=== PATIENT | female | born 1985 | race Caucasian/White ===

== ENCOUNTER 2017-02-21 17:29 | Outpatient (CLI) | payer OTHER ==
[~2017-02-21] VITALS: Ht 175.3 cm; Wt 93.6 kg
[2017-02-21 17:40] VITALS: BP 120/65; PULSE 52; TEMP 97.4
[2017-02-21 17:47] VITALS: BP 120/65; PULSE 52; TEMP 97.4
[2017-02-21] MEDS ORDERED: PRENATAL-U1 CAP PO (17:53)
[2017-02-21 18:15] VITALS: BP 109/59; PULSE 46
[2017-02-21 18:33] LABS: COLLECTION METHOD CLEAN CATCH
[2017-02-21 18:36] LABS: MEAN CELL VOLUME 90 fl (80.0-100.0); MEAN CORPUSCULAR HGB CONC 35 g/dl (33.0-37.0); MEAN PLATELET VOLUME 11.6 fl (7.4-10.4); PLATELET COUNT 137 K/mm3 (130-400); RED BLOOD COUNT 3.45 M/mm3 (4.10-5.30); WHITE BLOOD COUNT 9.8 K/mm3 (4.8-10.8)
[2017-02-21 18:45] LABS: HEMATOCRIT 30.9 % (37.0-47.0); HEMOGLOBIN 10.9 g/dl (12.5-16.0); MEAN CORPUSCULAR HEMOGLOBIN 32 pg (27.0-31.0)
[2017-02-21 18:45] LABS: PH 7 (5-8); SQUAMOUS EPITHELIAL 0-2 /hpf; URINE APPEARANCE Clear; URINE BACTERIA Moderate /hpf; URINE BILIRUBIN Negative (NEGATIVE); URINE BLOOD Negative (NEGATIVE); URINE COLOR Straw; URINE GLUCOSE Negative (NEGATIVE); URINE KETONE Negative (NEGATIVE); URINE LEUKOCYTE ESTERASE Trace (NEGATIVE); URINE PROTEIN(semi-quant) Negative (NEGATIVE); URINE RBC 0-2 /hpf; URINE UROBILINOGEN Negative (NEGATIVE); URINE WBC 0-2 /hpf
[2017-02-21 19:15] VITALS: BP 113/67; PULSE 48
[2017-02-21 19:23] LABS: ALBUMIN 3.3 gm/dL (3.5-5.0); BILIRUBIN,TOTAL 0.3 mg/dL (0.0-1.0); CALCIUM 9.4 mg/dL (8.4-10.2); CREATININE, serum 0.99 mg/dL (0.52-1.25); POTASSIUM 3.7 mmol/L (3.4-5.0); TOTAL PROTEIN 6.4 gm/dL (6.4-8.2)
== END 2017-02-21 19:40 | disposition home or self-care (01) ==
LOC: LDRO 17:29 → COL.LAB 17:29 → LDR 17:45 → LDRO 19:40
PROVIDERS: Obstetrics & Gynecology
DX: O16.3 Unspecified maternal hypertension, third trimester (principal); Z3A.37 37 weeks gestation of pregnancy
CPT/HCPCS: OP

== ENCOUNTER 2017-03-02 11:05 | Inpatient (IN) | payer OTHER ==
[2017-03-02] VITALS (46 sets, daily range): BP systolic 115–181; BP diastolic 65–98; PULSE 49–78; TEMP 98.3–98.9
[~2017-03-02] VITALS: Ht 175.3 cm; Wt 93.6 kg
[~2017-03-02 11:05] MED LIST: PRENATAL-U1 CAP PO
[2017-03-02] MEDS ORDERED: COLACE 100100 MG/CAP PO (11:35)
[2017-03-02 14:45] LABS: BASO % 0.4 % (0.0-2.0); EOS # 0.1 (0.0-0.7); EOS % 0.8 % (0-4.0); GRAN # 7.9 (1.4-6.5); GRAN % 73.1 % (42.2-75.2); HEMATOCRIT 33.4 % (37.0-47.0); HEMOGLOBIN 11.9 g/dl (12.5-16.0); LYMPH # 2.1 (1.2-3.4); LYMPH % 19.1 % (20.0-51.0); MEAN CELL VOLUME 89 fl (80.0-100.0); MEAN CORPUSCULAR HEMOGLOBIN 32 pg (27.0-31.0); MEAN CORPUSCULAR HGB CONC 36 g/dl (33.0-37.0); MEAN PLATELET VOLUME 11.9 fl (7.4-10.4); MONO # 0.7 (0.1-0.6); MONO % 6.1 % (1.7-9.3); PLATELET COUNT 146 K/mm3 (130-400); RED BLOOD COUNT 3.76 M/mm3 (4.10-5.30); WHITE BLOOD COUNT 10.8 K/mm3 (4.8-10.8)
[2017-03-02 14:54] LABS: ALBUMIN 3.9 gm/dL (3.5-5.0); BILIRUBIN,TOTAL 0.7 mg/dL (0.0-1.0); CALCIUM 10.9 mg/dL (8.4-10.2); CREATININE, serum 1.19 mg/dL (0.52-1.25); TOTAL PROTEIN 7.3 gm/dL (6.4-8.2)
[2017-03-03] VITALS (56 sets, daily range): BP systolic 112–146; BP diastolic 62–95; PULSE 48–69; TEMP 97.7–99.3
[2017-03-04] VITALS: BP 120/68; PULSE 52; TEMP 98.5
[2017-03-04 07:35] LABS: BASO % 0.3 % (0.0-2.0); EOS # 0.2 (0.0-0.7); EOS % 1.4 % (0-4.0); GRAN # 8.7 (1.4-6.5); GRAN % 73.2 % (42.2-75.2); LYMPH # 2.1 (1.2-3.4); LYMPH % 17.5 % (20.0-51.0); MEAN CELL VOLUME 92 fl (80.0-100.0); MEAN CORPUSCULAR HGB CONC 35 g/dl (33.0-37.0); MEAN PLATELET VOLUME 11.3 fl (7.4-10.4); MONO # 0.8 (0.1-0.6); MONO % 7.1 % (1.7-9.3); PLATELET COUNT 128 K/mm3 (130-400); RED BLOOD COUNT 2.25 M/mm3 (4.10-5.30); WHITE BLOOD COUNT 11.9 K/mm3 (4.8-10.8)
[2017-03-04 07:46] LABS: HEMATOCRIT 20.6 % (37.0-47.0); HEMOGLOBIN 7.2 g/dl (12.5-16.0); MEAN CORPUSCULAR HEMOGLOBIN 32 pg (27.0-31.0)
[2017-03-04 08:00] VITALS: BP 115/64; PULSE 69; TEMP 98.4
[2017-03-04 11:30] VITALS: BP 112/57; PULSE 68; TEMP 98.7
[2017-03-04] MEDS ORDERED: PERCOCET 325 MG1 TA2 PO (12:19)
[2017-03-04] MEDS ORDERED: MOTRIN 600600 MG/TAB PO (12:19)
[2017-03-04 17:30] VITALS: BP 130/75; PULSE 71; TEMP 98
[2017-03-04 20:30] VITALS: BP 110/54; PULSE 63; TEMP 98.6
[2017-03-05 08:20] VITALS: BP 120/72; PULSE 52; TEMP 97.7
[2017-03-05 17:05] VITALS: BP 129/59; PULSE 59; TEMP 98
[2017-03-05 21:53] VITALS: BP 143/80; PULSE 65; TEMP 98.1
[2017-03-06 08:00] VITALS: BP 130/71; PULSE 62; TEMP 97.5
== END 2017-03-06 12:15 | disposition home or self-care (01) | DRG 765 ==
LOC: LDRO 11:05 → LDR 12:00 → LDRO 13:16 → OB 13:19 → LDR 13:19 → OB 03-03 11:00
PROVIDERS: Obstetrics & Gynecology
PROC: 10D00Z1 Extraction of Products of Conception, Low, Open Approach (ICD-10-PCS; principal; 2017-03-03)
DX: O24.02 Pre-existing type 1 diabetes mellitus, in childbirth (principal); D62 Acute posthemorrhagic anemia; O99.02 Anemia complicating childbirth; E10.9 Type 1 diabetes mellitus without complications; Z96.41 Presence of insulin pump (external) (internal); O76 Abnormality in fetal heart rate and rhythm complicating labor and delivery; Z79.4 Long term (current) use of insulin; O99.824 Streptococcus B carrier state complicating childbirth; O13.4 Gestational [pregnancy-induced] hypertension without significant proteinuria, complicating childbirth; Z3A.38 38 weeks gestation of pregnancy; Z37.0 Single live birth
CPT/HCPCS: J0690; J1885; J2270; J2370; J2400; J2405; J2540; J2590; J7030

== ENCOUNTER → 2017-05-31 | Outpatient (CLI) | payer OTHER ==
[~2017-05-31] MED LIST changes: +COLACE 100100 MG/CAP PO; +MOTRIN 600600 MG/TAB PO; +PERCOCET 325 MG1 TA2 PO
== END ==
LOC: LAC 10:23
DX: Z39.1 Encounter for care and examination of lactating mother (principal)

== ENCOUNTER → 2018-11-17 | Outpatient (CLI) | payer OTHER | LOC: COL.VAS 10:59 | DX: E10.9 Type 1 diabetes mellitus without complications (principal); E03.9 Hypothyroidism, unspecified; I34.0 Nonrheumatic mitral (valve) insufficiency; Z86.79 Personal history of other diseases of the circulatory system ==

== ENCOUNTER 2019-05-09 07:29 | Inpatient (IN) | payer OTHER ==
[2019-05-09] VITALS (58 sets, daily range): BP systolic 93–165; BP diastolic 56–95; PULSE 48–94; TEMP 98.3–98.6
[~2019-05-09] VITALS: Ht 175.4 cm; Wt 92.3 kg
--- NOTE | 2019-05-09 07:45 | NUR ---
G3L1 at 38.1 weeks gestation to LDR3 with , patient states that her water broke at 0545 and contractions started at 0615. Patient changed into gown and wedged left in bed. Large amount of meconium stained fluid noted when patient gets into bed, patient is uncomfortable and breathing through her contractions. EFMs explained and applied, FHR reactive, CTX q2-3 minutes. SVE 2/80/-2, meconium fluid noted with exam. Assessment completed, patient is a type 1 IDDM and uses an insulin pump for blood glucose control. Current blood sugar is 122. She is a previous c/s but is desiring a . Plan of care reviewed. Call light within reach.
[2019-05-09] MEDS ORDERED: PRILOSEC 20MG20 MG PO (08:17)
[2019-05-09] MEDS ORDERED: PRENATAL TABLET PO (08:17)
[2019-05-09] MEDS ORDERED: CRANBERRY250 MG PO (08:17)
[2019-05-09] MEDS ORDERED: SYNTHROID0.05 MG/TA PO (08:18)
[2019-05-09] MEDS ORDERED: TIROSINT50 MC1 PO (08:18)
[2019-05-09] MEDS ORDERED: HUMALOG100 U/ML SQ (08:19)
--- NOTE | 2019-05-09 08:25 | NUR ---
This RN assumes care of patient. Plan of care discussed 0825: IV started in left hand, blood obtained and to lab, NS infusing. 0900: Dr. Warner at bedside discussing plan of care and plan for control of blood sugars. Patient verbalizes understanding. Patient and spouse are very aware of process of controlling blood sugar as patient was diagnosed at age 6. Patient on birthing ball and uncomfortable with contractions. 0950: SVE-4/80/-2 and patient resting in bed. 1118: SVE-6/80/-2 and requesting epidural. Rossy BEAUTY SALES ADVISOR notified. 1125: Patient sitting on edge of bed and LDelmaHugo BEAUTY SALES ADVISOR at bedside. 1135: Test dose given and patient tolerates well. 1140: Patient repositioned and safety precautions gone over and plan of care discussed. 1140: Wiley catheter placed and patient tolerates well. SVE 6-7/80/-2 and patient turned left lateral with right leg resting in stirrup.
[2019-05-09 08:52] LABS: BASO % 0.4 % (0.0-2.0); EOS # 0.1 (0.0-0.7); EOS % 1.3 % (0-4.0); GRAN # 4.4 (1.4-6.5); GRAN % 55.8 % (42.2-75.2); HEMOGLOBIN 12.8 g/dl (12.5-16.0); LYMPH # 2.6 (1.2-3.4); LYMPH % 32.6 % (20.0-51.0); MEAN CELL VOLUME 90 fl (80.0-100.0); MEAN CORPUSCULAR HEMOGLOBIN 32 pg (27.0-31.0); MEAN CORPUSCULAR HGB CONC 35 g/dl (33.0-37.0); MEAN PLATELET VOLUME 11.7 fl (7.4-10.4); MONO # 0.8 (0.1-0.6); MONO % 9.6 % (1.7-9.3); PLATELET COUNT 158 K/mm3 (130-400); RED BLOOD COUNT 4.01 M/mm3 (4.10-5.30); REDCELL DISTRIBUTION WIDTH-CV 11.8 % (11.5-14.5)
[2019-05-09 08:54] LABS: HEMATOCRIT 36.2 % (37.0-47.0)
--- NOTE | 2019-05-09 16:55 | NUR ---
Roles at bedside and discussing plan of care. SVE-8/80/-1 and swelling noted on anterior of cervix per physician. 1701: IUPC discussed and placed at this time and patient tolerates. Will monitor contractions and strength and reevaluate. Roles at nurses station reviewing FHR strip and contractions. Patient monitoring blood sugars throughout the day and have been stable.
--- NOTE | 2019-05-09 17:20 | NUR ---
Roles at bedside discussing how contractions are not showing much intensity and pitocin would be needed or is an option. Discussing risks at this time. Patient agrees to start pitocin. Plan of care discussed. 1729: Pitocin started at 2mU per protocol and patient verbalizes understanding Patient repositioned.
--- NOTE | 2019-05-09 19:05 | NUR ---
. Roles at bedside. SVE unchanged from previous exam with cervical swelling. Roles discussing plan of care with spouse and . Pt positioned to sitting up in high fowlers for comfort.
--- NOTE | 2019-05-09 19:25 | NUR ---
Roles at bedside to discuss plan of care with patient and spouse. All questions answered. Pt wishing to continue current plan of care for additional hour.
--- NOTE | 2019-05-09 20:55 | NUR ---
2054 - Roles at bedside. SVE unchanged from previous exam. Plan of care discussed with patient and spouse with plan for section at this time. Pt and spouse agreeable to plan. IUPC removed at this time. Pitocin off. 2099 - Hibiclens to incision site. Dustin Hugo at bedside. Nursery nurse updated. school laboratory technician updated. 2107 - Monitors removed. Pt transferred to OR by bed with spouse.
--- NOTE | 2019-05-09 23:00 | NUR ---
Pt with own insulin pump and continuous glucometer attached. Pt to manage own insulin regimen as usual per Dr. Warner.
[2019-05-10] VITALS (8 sets, daily range): BP systolic 108–143; BP diastolic 58–81; PULSE 47–56; TEMP 97.6–98.7
--- NOTE | 2019-05-10 05:00 | NUR ---
Pt able to lift and hold each leg off of bed for 5 seconds. Pt wishing to ambulate and get cleaned up. Pt to bathroom independently. Wiley catheter removed at this time, pt tolerated well. Educated on pericare and need of 3 measured voids, pt verbalized understanding. Clean gown on. Mesh panties and peripad applied. Pt back to bed, binder on, pt plans on resting until next feeding.
[2019-05-10 07:38] LABS: HEMATOCRIT 29.8 % (37.0-47.0)
[2019-05-10 07:39] LABS: HEMOGLOBIN 10.2 g/dl (12.5-16.0)
--- NOTE | 2019-05-10 09:59 | NUR ---
Initial visit Parents thanked Data Architect Manager for offering congratulations and God's blessings for the of their daughter. Data Architect Manager thanked family for choosing [facility].
[2019-05-11 08:00] VITALS: BP 127/82; PULSE 61; TEMP 98
[2019-05-11] MEDS ORDERED: PERCOCET 325 MG1 TA2 PO (09:26)
[2019-05-11] MEDS ORDERED: IBU600 MG PO (09:26)
== END 2019-05-11 14:00 | disposition home or self-care (01) | DRG 786 ==
LOC: LDRO 07:29 → OB 08:16 → LDR 08:16 → OB 22:45
PROVIDERS: ADMIT Obstetrics & Gynecology
PROC: 10D00Z1 Extraction of Products of Conception, Low, Open Approach (ICD-10-PCS; principal; 2019-05-09)
PROC: 4A1HXCZ Monitoring of Products of Conception, Cardiac Rate, External Approach (ICD-10-PCS; 2019-05-09)
PROC: 10H07YZ Insertion of Other Device into Products of Conception, Via Natural or Artificial Opening (ICD-10-PCS; 2019-05-09)
DX: O62.0 Primary inadequate contractions (principal); O24.02 Pre-existing type 1 diabetes mellitus, in childbirth; O99.284 Endocrine, nutritional and metabolic diseases complicating childbirth; Z37.0 Single live birth; E03.9 Hypothyroidism, unspecified; Z3A.38 38 weeks gestation of pregnancy; O77.0 Labor and delivery complicated by meconium in amniotic fluid; O34.211 Maternal care for low transverse scar from previous cesarean delivery
CPT/HCPCS: J0690; J1885; J2370; J2400; J2405; J2590; J7030; J7120

== ENCOUNTER → 2021-12-02 | Outpatient (CLI) | payer OTHER ==
[~2021-12-02] MED LIST changes: +CRANBERRY250 MG PO; +HUMALOG100 U/ML SQ; +IBU600 MG PO; +PRENATAL TABLET PO; +PRILOSEC 20MG20 MG PO; +SYNTHROID0.05 MG/TA PO; +TIROSINT50 MC1 PO
== END ==
LOC: COL.VAS 12:30
DX: O99.419 Diseases of the circulatory system complicating pregnancy, unspecified trimester (principal); O24.019 Pre-existing type 1 diabetes mellitus, in pregnancy, unspecified trimester; Z3A.00 Weeks of gestation of pregnancy not specified

== ENCOUNTER → 2022-05-28 | Outpatient (CLI) | payer OTHER ==
[~2022-05-28] MED LIST changes: +IBU800 M1 PO; +ROXICODONE 55 MG/TAB PO
--- NOTE | 2022-05-28 10:46 | NUR ---
Pt, Jael Lee, presents for outpatient consult with 15 day old baby boy, Landen Lee, for a evaluation and weight check. Pt's previous babies have hx of significant wt loss and slow weight gain. She is also accompanied by her mother. Landen was born by c/section on [birth year] and weighed 10# 13.5 (4920 gms). Discharge weight was 10# 3oz (4610 gms); he weighed 9# 14oz on 05/16/22. Today Landen weighs 10# 11oz (4848 gms), for a gain of 13oz over 12 days. Pt states Landen eats 9-10 times daily, and has qs voids and stools. Landen appears to latch well here, but does release a couple times. Pt states he is not as hungry at this time, usually he is on task and does not need re-latched during feedings. After Landen has a weight gain of 1.6oz (46 gms). POC: Continue BF ad kymberly. F/U: Clinic as desired for weight check, with physicians as scheduled. Questions invited and answered.
== END ==
LOC: LAC 09:22
DX: Z39.1 Encounter for care and examination of lactating mother (principal); Z71.89 Other specified counseling